=== PATIENT | male | born 1955 | race Caucasian/White ===

== ENCOUNTER → 2017-07-05 | Outpatient (CLI) | payer MEDICARE | END | disposition home or self-care (01) | LOC: GMAM 10:58 | PROVIDERS: ATTEND Family Medicine | DX: E78.2 Mixed hyperlipidemia (principal) ==

== ENCOUNTER → 2017-10-16 | Outpatient (CLI) | payer MEDICARE, OTHER | LOC: GMAM 14:59 | PROVIDERS: ATTEND Family Medicine | DX: R97.20 Elevated prostate specific antigen [PSA] (principal) ==

== ENCOUNTER → 2018-06-05 | Outpatient (CLI) | payer OTHER | LOC: GMAM 14:39 | PROVIDERS: ATTEND Family Medicine | DX: G31.84 Mild cognitive impairment of uncertain or unknown etiology (principal); I10 Essential (primary) hypertension; E55.9 Vitamin D deficiency, unspecified; E11.9 Type 2 diabetes mellitus without complications ==

== ENCOUNTER → 2018-10-14 | Outpatient (CLI) | payer OTHER | LOC: GMAM 14:23 | PROVIDERS: ATTEND Family Medicine | DX: E55.9 Vitamin D deficiency, unspecified (principal) ==

== ENCOUNTER → 2019-02-06 | Outpatient (CLI) | payer OTHER | LOC: GMAM 10:41 | PROVIDERS: ATTEND Family Medicine | DX: E55.9 Vitamin D deficiency, unspecified (principal); E11.9 Type 2 diabetes mellitus without complications; I10 Essential (primary) hypertension; Z12.5 Encounter for screening for malignant neoplasm of prostate | CPT/HCPCS: 82306; G0103 ==

== ENCOUNTER → 2020-04-29 | Outpatient (CLI) | payer OTHER | LOC: GMAM 14:33 | PROVIDERS: ATTEND Family Medicine | DX: Z12.5 Encounter for screening for malignant neoplasm of prostate (principal); R53.83 Other fatigue; E11.9 Type 2 diabetes mellitus without complications; I10 Essential (primary) hypertension; E78.2 Mixed hyperlipidemia; E55.9 Vitamin D deficiency, unspecified | CPT/HCPCS: 84439; 84443; G0103 ==

== ENCOUNTER → 2020-05-07 | Outpatient (CLI) | payer OTHER ==
--- NOTE | 2020-05-09 15:39 | CT ---
Procedure: CT LUNG SCREENING Exam Date: May 07, 2020. Ordering Provider: Brennen Jones Clinical Indication: PERSONAL HISTORY OF NICOTINE DEPENDENCE . Smoking cessation x9 years. 40 pack years. This patient meets eligibility criteria for low-dose CT lung cancer screening. Comparison: Chest x-ray September 2018 Technique: Using a multislice scanner, sequential helical axial imaging was obtained in the thorax, 2.5 mm thickness, 2.5 mm separation, from the level of the thoracic inlet through the lung bases without IV contrast. A low dose protocol was utilized for BMI greater than 30: BMI: 42. CTDI: 2.93 mGy. 120. kVp. 75 mA. DLP 110 mGy-cm. 2D sagittal and coronal reconstructed images, 6.0 mm thickness, were obtained. This exam was performed according to our departmental dose optimization program which includes use of automated exposure control, adjustment of the mA and/or kV according to patient size and/or use of iterative reconstruction technique. Nodule measurements under 10 mm are given as mean value of 3 axes diameters. FINDINGS: Lungs and large airways: Bilateral nonuniform blebs more prevalent in the upper lung ly. Pleural parenchymal scarring in the inferior lingula. Small subpleural calcifications left upper lobe. Pleural parenchymal scarring and volume loss left lower lobe. 4.0 mm subpleural nodule is solid, anterior base right upper lobe on axial series 2, image 66. Pleural-parenchymal scarring in the right lower lobe. No abnormal nodules are known mass. No acute or focal infiltrate. Pleura and space: Focal thickening. No acute process. Mediastinum and con: evaluation limited by low dose technique and lack of IV contrast. Normal sized lymph nodes but no dominant soft tissue mass. Heart and great vessels: Calcification in several brachiocephalic vessels aortic arch and descending thoracic aorta. Chest wall, lower neck, axillae: Evaluation also limited by same factors as described above. Normal size axillary lymph nodes. Upper abdomen: Evaluation limited by low-dose technique. No free air or free fluid in the included peritoneal space. Artifact from anterior abdominal wall contacting the anterior gantry of the CT scanner. Osseous structures: Evaluation limited by low dose MIP technique. Multiple levels of spondylosis and anterior superior mid thoracic spine. Minimal arthrosis in the shoulder clavicle and sternal joints. IMPRESSION: 1. Emphysematous changes mostly centrilobular, predominantly upper lung ly. 4 mm solid subpleural nodule right upper lobe. No abnormal nodules and no masses. No focal infiltrate. [facility] Best Practice Recommendations: please see below for Lung RADS category and FOLLOW-UP.* *Lung RADS category CATEGORY 2- Nodules with a very low likelihood (less than 1%) of becoming a clinically active cancer due to size or lack of growth. Nodules: Perifissural nodule(s) < 10 mm. (526mm3). Solid or part solid nodule(s) less than 6mm (113.1 mm3), new solid nodule less than 4mm (33.5 mm3). Ground glass nodule(s) less than 30mm (54560.2 mm3) or unchanged or slow growing ground glass nodule 30mm or greater. Cat 3 or 4 nodule unchanged for 3 or more months. FOLLOW-UP: Continue annual screening with a Low Dose Chest CT in 12 months for re-evaluation. Electronically signed by: Rohit Masterson MD 05/09/2020 3:38 PM CDT
== END ==
LOC: CT 09:55
PROVIDERS: ATTEND Family Medicine
DX: Z87.891 Personal history of nicotine dependence (principal); Z12.2 Encounter for screening for malignant neoplasm of respiratory organs; J43.9 Emphysema, unspecified; R91.1 Solitary pulmonary nodule